=== PATIENT | female | born 1975 | race Hispanic/Latino ===

== ENCOUNTER 2018-02-10 23:47 | Emergency (ER) | payer SELFPAY ==
[2018-02-11] MEDS ORDERED: Meclizine HCl 25 MG TAB ONE (01:08)
[2018-02-11 01:50] LABS: #Basophils 0.1 thou/uL (0.0-0.2); #Eosinphils 0.1 thou/uL (0.0-0.7); #Lymphocytes 1.5 thou/uL (1.20-3.40); #Monocytes 0.5 thou/uL (0.11-0.59); #Neutrophils 6.2 thou/uL (1.40-6.50); %Basophils 0.6 % (0.0-1.0); %Eosinophils 1.4 % (0.0-10.0); %Monocytes 5.9 % (0.0-10.0); %Neutrophils 74.1 % (42.0-75.0); Hemoglobin 13.8 g/dL (12.0-16.0); Mean Corpuscular HGB CONC 34.8 g/dL (32.0-36.0); Mean Corpuscular Hemoglobin 32.6 pg (27.0-31.0); Mean Corpuscular Volume 93.6 fL (78.0-98.0); Mean Platelet Volume 9.3 fL (7.4-10.4); Platelet Count 223 thou/uL (130-400); RBC Distribution Width 11.6 % (11.5-14.5); Red Blood Cell (RBC) Count 4.25 mill/uL (4.20-5.40); White Blood Cell (WBC) Count 8.3 thou/uL (4.8-10.8)
[2018-02-11 02:04] LABS: ALT (SGPT) 33 U/L (8-55); AST (SGOT) 21 U/L (5-34); Albumin 4.4 g/dL (3.5-5.0); Alkaline Phosphatase 60 U/L (40-150); Anion Gap 10 mmol/L (10-20); BUN (Urea Nitrogen) 13 mg/dL (7.0-18.7); Bilirubin, Total 0.7 mg/dL (0.2-1.2); CK (CPK) 64 U/L (29-168); Calc. Creatinine Clearance 0 mL/min (70-130); Calcium 8.9 mg/dL (7.8-10.44); Carbon Dioxide 22 mmol/L (22-29); Chloride 109 mmol/L (98-107); Estimated GFR-MDRD Greater than 90; Glucose 130 mg/dL (70-105); Potassium 4.1 mmol/L (3.5-5.1); Protein, Total 7.4 g/dL (6.0-8.3); Sodium 137 mmol/L (136-145)
[2018-02-11 02:07] LABS: CKMB 0.8 ng/mL (0-6.6); Troponin I Less than 0.010 ng/mL (< 0.028)
[2018-02-11 03:06] LABS: Bilirubin Negative (Negative); Blood, Urine Negative (Negative); Clarity CLEAR (Clear); Glucose, Urine (Dipstick) 250 mg/dL (Negative); Leukocyte Negative (Negative); Nitrite Negative (Negative); Protein, Urine (Dipstick) Negative (Neg-Trace); pH, Urine 7.5 (5.0-9.0)
--- NOTE | 2018-02-11 12:22 | CT ---
PRELIMINARY REPORT/[facility]/EMERGENTY AFTER-HOURS PROCEDURE CT Head Without Intravenous Contrast EXAM DATE/TIME: 02/11/2018 1:11 AM CLINICAL HISTORY: 42 years old, female; Signs and symptoms; Dizziness; Patient HX: F42 reports to ed C/O dizziness. PT reports the dizziness started at 2300. PT reports HX of dizziness, however it resolved last time it o ccurred. PT reports the dizziness feels the same when laying down and standing up. PT denies tinnitus, SOB, cp, fever or vision changes TECHNIQUE: Axial computed tomography images of the head/brain without intravenous contrast. COMPARISON: No relevant prior studies available. FINDINGS: Brain: Normal. Ventricles: Normal. Bones/joints: Normal. Sinuses: Ethmoid sinus disease. Small right ethmoid sinus osteoma. Mastoid air cells: Normal as visualized. Soft tissues: Normal. IMPRESSION: No acute intracranial abnormality. Thank you for allowing us to participate in the care of your patient. Dictated and Authenticated by: Kamar Power MD 02/11/2018 1:58 AM Central Time ([place] & [place]) FINAL REPORT: BRAIN CT WITHOUT IV CONTRAST: History: 42-year-old female with history of dizziness. FINDINGS: There are low lying cerebellar tonsils noted bilaterally extending into the region of the foramen mag num. Non-emergent follow up imaging with MRI including T2 sagittal sequences is suggested for further assessment of this. There are some mild sinus mucosal changes including the ethmoid sinuses and a po ssible small right ethmoid sinus osteoma. The mastoids are clear. No focal mass or midline shift. No intra or extraaxial hemorrhage. IMPRESSION: Bilateral low lying cerebellar tonsils. Follow up non-emergent brain MRI to include sagittal T2 seque nces is suggested for further assessment. 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 No intracranial process. CODE QD [facility] CALLED TO DR ALVAREZ 13:54 POS: [facility]
--- NOTE | 2018-02-13 11:36 | EKG ---
Test Reason : Blood Pressure : / mmHG Vent. Rate : 069 BPM Atrial Rate : 069 BPM P-R Int : 160 ms QRS Dur : 086 ms QT Int : 424 ms P-R-T Axes : 037 029 033 degrees QTc Int : 454 ms Normal sinus rhythm Normal ECG Confirmed by ERNESTO MURPHY DO ([id number]), science editor ALESSANDRO ZAMBRANO ([id number]) on 02/13/2018 11:35:40 AM Referred By: Confirmed By:ERNESTO MURPHY DO
== END 2018-02-11 04:07 | disposition home or self-care (01) ==
LOC: ERS 23:47
DX: R42 Dizziness and giddiness (principal); E03.9 Hypothyroidism, unspecified; E78.5 Hyperlipidemia, unspecified; Z79.899 Other long term (current) drug therapy
CPT/HCPCS: 36415; 70450; 80053; 81003; 82553; 84484; 85025; 93005